=== PATIENT | female | born 1995 | race Caucasian/White ===

== ENCOUNTER 2018-12-22 18:26 | Emergency (ER) | payer SELFPAY ==
[~2018-12-22] VITALS: Ht 165.1 cm; Wt 85.4 kg
[2018-12-22 18:37] VITALS: Ht 165.1 cm; Wt 85.4 kg
[2018-12-22] MEDS ORDERED: SOD CHLORIDE 0.9% 1,000 ML IV STA (22:26)
[2018-12-22] MEDS ORDERED: ONDANSETRON 4 MG INJ IV STA (22:26)
[2018-12-22] MEDS ORDERED: KETOROLAC 15 MG INJ IV ONE (23:40)
[2018-12-22] MEDS ORDERED: ONDA4TAB8 PO (23:45)
--- NOTE | 2018-12-22 23:45 | ERD ---
ER Documentation Chief Complaint Chief Complaint nausea,RLQ ab pain,&R thigh numbness today HPI This is a 23-year-old female presents to the emergency room for evaluation of abdominal pain. The patient states that his abdominal pain for the past 24 hours and states that it is in the lower portion of her abdomen. States that she is feeling mildly nauseous. The patient denies any, vomiting, diarrhea or fever associated with this. She denies taking medications to help her symptoms and came to the emergency room today for evaluation. The patient also denies any vaginal discharge or vaginal bleeding at this time. ROS All systems reviewed and are negative except as per history of present illness. Allergies Allergies: Coded Allergies: No Known Allergy (Unverified , 12/22/18) PMhx/Soc Medical and Surgical Hx: pt denies Medical Hx, pt denies Surgical Hx Hx Alcohol Use: Yes (occasional) Hx Substance Use: No Hx Tobacco Use: No Smoking Status: Never smoker Physical Exam Vitals Vital Signs Date Temp Pulse Resp B/P (MAP) Pulse Ox O2 O2 Flow FiO2 Time Delivery Rate 12/22/18 98.6 102 18 157/87 96 18:37 (110) Physical Exam INITIAL VITAL SIGNS: Reviewed by me GENERAL: The patient is well developed and appropriate for usual state of health in no apparent distress HEENT: Pupils equal, round, and reactive to light. EOMI. There is no scleral icterus. NECK: C-spine is soft and supple, there is no meningismus. There is no cervical lymphadenopathy. LUNGS: Clear to auscultation bilaterally. There are no rales, wheezes or rhonchi. HEART: Regular rate and rhythm, no murmurs, clicks, rubs or gallops. ABDOMEN: Periumbilical tenderness to palpation, negative McBurney point tenderness, no CVAT, no adnexal tenderness, soft, non-tender, non-distended. There are bowel sounds in all four quadrants. No rebound or guarding. EXTREMITIES: There is no peripheral cyanosis or edema. No focal swelling or erythema. NEUROLOGICAL: The patient moves all four extremities with 5/5 strength. Cranial nerves II - XII are intact. Normal gait. Alert and oriented SKIN: There is no apparent rash or petechiae. HEME/LYMPHATIC: There is no evidence of excessive bruising or lymphedema. PSYCHIATRIC: The patient does not appear anxious or depressed. Result Diagram: 12/22/18223912/22/182239 Results 24 hrs Laboratory Tests Test 12/22/18 22:28 12/22/18 22:32 12/22/18 22:40 Urine Color YELLOW Urine Clarity SLIGHTLY CLOUDY Urine pH 5.0 Urine Specific Bruner 1.021 Urine Ketones 1+ mg/dL Urine Nitrite NEGATIVE mg/dL Urine Bilirubin NEGATIVE mg/dL Urine Urobilinogen NEGATIVE mg/dL Urine Leukocyte Esterase NEGATIVE [facility]/ul Urine Microscopic RBC 2 /HPF Urine Microscopic WBC 1 /HPF Urine Squamous Epithelial Cells FEW /HPF Urine Bacteria FEW /HPF Urine Mucus MODERATE /HPF Urine Hemoglobin NEGATIVE mg/dL Urine Glucose NEGATIVE mg/dL Urine Total Protein NEGATIVE mg/dl POC Beta HCG, Qualitative NEGATIVE White Blood Count 9.0 10^3/ul Red Blood Count 4.19 10^6/ul Hemoglobin 13.8 g/dl Hematocrit 40.8 % Mean Corpuscular Volume 97.4 fl Mean Corpuscular Hemoglobin 32.9 pg Mean Corpuscular 33.8 g/dl Hemoglobin Concent Red Cell Distribution Width 11.5 % Platelet Count 302 10^3/UL Mean Platelet Volume 9.9 fl Immature Granulocytes % 0.200 % Neutrophils % 49.4 % Lymphocytes % 41.4 % Monocytes % 4.6 % Eosinophils % 3.7 % Basophils % 0.7 % Nucleated Red Blood Cells % 0.0 /100WBC Immature Granulocytes # 0.020 10^3/ul Neutrophils # 4.5 10^3/ul Lymphocytes # 3.7 10^3/ul Monocytes # 0.4 10^3/ul Eosinophils # 0.3 10^3/ul Basophils # 0.1 10^3/ul Nucleated Red Blood Cells # 0.0 10^3/ul Sodium Level 140 mmol/L Potassium Level 3.8 mmol/L Chloride Level 102 mmol/L Carbon Dioxide Level 26 mmol/L Anion Gap 12 Blood Urea Nitrogen 9 mg/dl Creatinine 0.53 mg/dl Est Glomerular Filtrat > 60 mL/min Rate mL/min Glucose Level 93 mg/dl Calcium Level 10.6 mg/dl Total Bilirubin 0.6 mg/dl Direct Bilirubin 0.00 mg/dl Indirect Bilirubin 0.6 mg/dl Aspartate Amino 21 IU/L Transf (AST/SGOT) Alanine 26 IU/L Aminotransferase (ALT/SGPT) Alkaline Phosphatase 93 IU/L Total Protein 8.8 g/dl Albumin 5.3 g/dl Globulin 3.50 g/dl Albumin/Globulin Ratio 1.51 Lipase 40 U/L Current Medications Medications Dose Sig/Radha Start Time Status Last (Trade) Ordered Route PRN Stop Time Admin Dose Reason Admin Sodium 1,000 ml @ Q1H STAT 12/22/18 DC 12/22/18 Chloride 1,000 mls/hr IV 22:26 22:46 12/22/18 23:25 Ondansetron 4 mg ONCE STAT 12/22/18 DC 12/22/18 HCl (Zofran IV 22:26 22:46 Inj) 12/22/18 22:27 Ketorolac 15 mg ONCE STAT 12/22/18 UNV Tromethamine IV 23:40 (Toradol) 12/22/18 23:41 Procedures/MDM This 23-year-old female presents the ER for evaluation of abdominal pain. On my exam the patient was afebrile, nontoxic-appearing and hemodynamically stable. On my exam she had mild periumbilical tenderness to palpation however there was no tenderness in the right lower quadrant, no flank tenderness or no tenderness in the adnexal regions. The patient had lab work drawn which is normal shows no leukocytosis. She was given Zofran, Toradol, and IV fluids. Her UCG is negative, urinalysis shows no signs of infection. On my reevaluation after the patient has been medicated she states she is feeling much better. The patient is nontoxic-appearing at this time and I have a low suspicion for appendicitis however I did speak with the patient and the patient's mother in regards to early appendicitis symptoms. They do feel comfortable with discharge and strict return precautions at this time. There were advised that the patient would have any type of abdominal pain or fever and multiple other symptoms she can return to the ER for a CAT scan at that time and the patient and the patient's mother feel comfortable with her plan and will be discharged home with a prescription for Zofran at this time. Differential diagnoses entertained was broad with potential high acuity. Patient has been evaluated for appendicitis, cholecystit is, and other high risk medical and surgical causes of abdominal pain. Ultimately the patient's evaluation is nondiagnostic. Based on the patient's lack of risk factors, as well as the patient's clinical, laboratory, and imaging data, the patient appears to be low risk for these high risk causes of abdominal pain. Departure Diagnosis: Primary Impression: Abdominal pain Additional Impression: Nausea Condition: Stable MATTY DIAZ DO Dec 22, 2018 23:45
== END 2018-12-23 00:04 | disposition home or self-care (01) ==
LOC: E/R 18:26
DX: R10.9 Unspecified abdominal pain (principal)
CPT/HCPCS: 80053; 81001; 81003; 81025; 83690; 85025; J1885; J2405; J7030; 36415; 96374; 96375